=== PATIENT | female | born 1990 | race American Indian/Alaskan Native ===

== ENCOUNTER 2018-04-02 19:26 | Emergency (ER) | payer SELFPAY ==
[2018-04-02 19:41] VITALS: BP 143/91
[2018-04-02 20:38] LABS: HCG Qualitative,Urine Negative (Negative)
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
[2018-04-02] MEDS ORDERED: PERCOCET 5/325 ONE (23:14)
[2018-04-02] MEDS ORDERED: PERCOCET 5/325 PO PRN (23:26)
== END 2018-04-02 23:40 | disposition left against medical advice (07) ==
LOC: ED 19:26
DX: M79.644 Pain in right finger(s) (principal); Z53.21 Procedure and treatment not carried out due to patient leaving prior to being seen by health care provider
CPT/HCPCS: 81025

== ENCOUNTER 2018-04-06 00:41 | Emergency (ER) | payer SELFPAY ==
[2018-04-06 00:49] VITALS: BP 124/72
[2018-04-06] MEDS ORDERED: MOTRIN PO ONE (01:12)
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
[2018-04-06 01:57] LABS: HCG Qualitative,Urine Negative (Negative)
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
== END 2018-04-06 06:20 | disposition home or self-care (01) ==
LOC: ED 00:41
DX: S63.630A Sprain of interphalangeal joint of right index finger, initial encounter (principal); F17.200 Nicotine dependence, unspecified, uncomplicated; J45.909 Unspecified asthma, uncomplicated; Z88.1 Allergy status to other antibiotic agents; Y04.8XXA Assault by other bodily force, initial encounter; Y93.89 Activity, other specified; Y99.8 Other external cause status; Y92.89 Other specified places as the place of occurrence of the external cause
CPT/HCPCS: 81025